=== PATIENT | female | born 1985 | race Caucasian/White ===

== ENCOUNTER 2019-02-21 02:02 | Emergency (ER) | payer BC ==
[~2019-02-21] VITALS: Ht 152.4 cm; Wt 56.7 kg
[2019-02-21 02:27] LABS: *BILIRUBIN,URIN NEGATIVE (NEGATIVE); *BLOOD, URINE 2+ (NEGATIVE); *COLOR,URINE YELLOW (YELLOW); *KETONES,URINE NEGATIVE (NEGATIVE); *UROBILINOGEN,URINE 0.2 E.U./dl (NORMAL); LEUKOCYTE ESTERASE ,URINE 1+ (NEGATIVE); NITRITE, URINE NEGATIVE (NEGATIVE); UGLUCOSE NEGATIVE (NEGATIVE)
[2019-02-21 02:32] LABS: *CLARITY,URINE SLIGHTLY HAZY (CLEAR)
[2019-02-21 02:35] LABS: BACTERIA,URINE MODERATE /HPF (NONE SEEN); RBC,URINE 20-50 /HPF (0-3); SQUAMOUS EPITHELIAL CELL,UR FEW /HPF (NONE SEEN); WBC,URINE 50-80 /HPF (0-3)
[2019-02-21] MEDS ORDERED: PHENAZOPYRIDINE HCL 100 MG TABLET ONE (03:11)
[2019-02-21] MEDS ORDERED: NITROFURANTOIN/NITROFURAN MAC 100 MG CAPSULE ONE (03:11)
[2019-02-21] MEDS ORDERED: PHENAZOPYRIDINE HCL 100 MG TABLET PO ONE (03:15)
[2019-02-21] MEDS ORDERED: NITROFURANTOIN/NITROFURAN MAC 100 MG CAPSULE PO ONE (03:15)
--- NOTE | 2019-02-21 03:16 | NUR ---
Patient discharged to home in stable conditon. Written and verbal after care instructions given. Patient verbalizes understanding of instructions.Ambulated from ER with stable gait. All belongings with patient.
[2019-02-21 03:17] VITALS: BP 127/80
== END 2019-02-21 03:25 | disposition home or self-care (01) ==
LOC: ER 02:09
DX: N39.0 Urinary tract infection, site not specified (principal)
CPT/HCPCS: 87086; A4663

== ENCOUNTER 2020-07-28 05:19 | Emergency (ER) | payer OTHER ==
[~2020-07-28] VITALS: Ht 152.4 cm; Wt 59.0 kg
[2020-07-28] MEDS ORDERED: IV NORMAL SALINE 1000 ML BAG IV ONE (05:45)
--- NOTE | 2020-07-28 05:45 | NUR ---
Radiology department called to request electrical mechanical technician to come in for ultrasound of patient. Unable to acquire definite ETA.
[2020-07-28 05:50] LABS: *BILIRUBIN,URIN NEGATIVE (NEGATIVE); *BLOOD, URINE 1+ (NEGATIVE); *CLARITY,URINE CLEAR (CLEAR); *COLOR,URINE YELLOW (YELLOW); *KETONES,URINE NEGATIVE (NEGATIVE); *UROBILINOGEN,URINE 0.2 E.U./dl (NORMAL); LEUKOCYTE ESTERASE ,URINE NEGATIVE (NEGATIVE); NITRITE, URINE NEGATIVE (NEGATIVE); UGLUCOSE NEGATIVE (NEGATIVE)
[2020-07-28 05:51] LABS: *URINE HCG, QUAL NEGATIVE (NEGATIVE)
--- NOTE | 2020-07-28 05:54 | NUR ---
HEAD OF [employer]ES CALLED BY 05:45 AM
[2020-07-28 05:56] LABS: HEMATOCRIT 37.9 % (31.2-41.9); MEAN CORPUSCULAR HEMOGLOBIN 28.3 uug (24.7-32.8); MEAN CORPUSCULAR VOLUME 83.5 fL (75.5-95.3); PLATELET COUNT (AUTO) 211 K/uL (179-408)
[2020-07-28 06:01] LABS: BACTERIA,URINE MODERATE /HPF (NONE SEEN); SQUAMOUS EPITHELIAL CELL,UR MODERATE /HPF (NONE SEEN); WBC,URINE 0-3 /HPF (0-3)
[2020-07-28 06:03] LABS: CREATININE 0.8 mg/dL (0.6-1.3); POTASSIUM 3.6 mmol/L (3.5-5.1)
[2020-07-28 06:09] LABS: BILIRUBIN,DIRECT 0.1 mg/dL (0.0-0.2); BILIRUBIN,TOTAL 0.4 mg/dL (0.2-1.0); TOTAL PROTEIN, SERUM 7.1 g/dL (6.4-8.2)
--- NOTE | 2020-07-28 06:54 | NUR ---
Hands off report given to Miguel Angel VALDEZ
--- NOTE | 2020-07-28 07:41 | NUR ---
PT WAS D/C'd TO HOME. D/C INSTRUCTIONS GIVEN TO THE PT BY DR MARADIAGA.
[2020-07-28 07:42] VITALS: BP 128/67
== END 2020-07-28 07:54 | disposition home or self-care (01) ==
LOC: ER 05:19
DX: R10.31 Right lower quadrant pain (principal); Z82.49 Family history of ischemic heart disease and other diseases of the circulatory system; Z97.5 Presence of (intrauterine) contraceptive device; N83.202 Unspecified ovarian cyst, left side
CPT/HCPCS: 36415; 84703; 85025; 87077; 87086; A4663; J7030

== ENCOUNTER 2021-04-28 20:47 | Emergency (ER) | payer OTHER ==
[~2021-04-28] VITALS: Ht 152.4 cm; Wt 59.0 kg
--- NOTE | 2021-04-28 21:57 | NUR ---
Cleared for D/C by MD, ACI provided, understanding verbalised. pt out of dept with steady gait under own power, family present. Vitals stable, NAD noted
[2021-04-28 21:59] VITALS: BP 121/74
== END 2021-04-28 22:00 | disposition home or self-care (01) ==
LOC: ER 20:51
DX: R20.0 Anesthesia of skin (principal)
CPT/HCPCS: A4663